=== PATIENT | female | born 1975 | race Caucasian/White ===

== ENCOUNTER 2019-01-27 12:27 | Outpatient (CLI) | payer MEDICARE ==
--- NOTE | 2019-01-27 13:17 | CT ---
CT ABDOMEN AND PELVIS WITH IV CONTRAST CLINICAL INFORMATION: Abdominal pain with nausea and vomiting. COMPARISON: 04/24/2015. Technique: Multiple contiguous axial CT images are obtained through the abdomen and pelvis with IV contrast. Cor onal reformatted images are provided. FINDINGS: Lower Chest: within normal limits. Vessels: Abdominal aorta is normal in caliber without evidence of an aortic dissection. Abdomen: Portal vein:Patent Gallbladder: Surgically absent. Liver: There are a few small subcentimeter hypodense lesions seen within the left hepatic lobe one of which was present on prior exam in 2015.. These lesions are too small to further characterize but statistically likely represent tiny cysts. Spleen: within normal limits. Pancreas: within normal limits. Adrenals: within normal limits. Kidneys: within normal limits. Bowel: Postsurgical changes of the stomach and loops of small bowel are again seen. There is mild foc al dilatation of a loop of small bowel which is fluid-filled in the left mid abdomen, but this probably related to peristalsis. Remaining small bowel loops are normal in caliber. Appendix: Not visualized, but there are no secondary signs to suggest appendicitis. Peritoneum: No ascites or free air; no fluid collection. Mesentery and Retroperitoneum: No enlarged mesenteric or retroperitoneal lymph nodes. Abdominal Wall: There is a supraumbilical ventral abdominal wall hernia which is larger in size jai red to prior exam. Portion of the sigmoid colon extends to the level of the defect. The hernia defect measures 6.7 cm in transverse dimensions. There is no evidence of bowel obstruction. Pelvis: Reproductive Organs: Evidence of hysterectomy. There is a small low-density structure seen associated with the left ovary measuring 1.7 cm likely 2 small cysts/follicle. Pelvis within normal limits. Bladder: within normal limits. Bones: within normal limits. IMPRESSION: 1. No acute findings are seen in the abdomen or pelvis. 2. Subcentimeter too small to characterize hypodense lesions left hepatic lobe statistically likely r epresenting cysts. 3. Postsurgical changes related to cholecystectomy and hysterectomy. 4. Post surgical changes of the stomach and loops of small bowel in the upper abdomen. 5. Supraumbilical abdominal wall hernia with small portion of the anterior wall sigmoid colon extendi ng into the defect. There is no evidence of a bowel obstruction.
== END 2019-01-27 12:28 | disposition home or self-care (01) ==
LOC: CT 12:27
PROVIDERS: ATTEND Surgery
DX: R10.9 Unspecified abdominal pain (principal); R11.2 Nausea with vomiting, unspecified; K76.9 Liver disease, unspecified; K43.9 Ventral hernia without obstruction or gangrene; Z98.84 Bariatric surgery status; Z90.49 Acquired absence of other specified parts of digestive tract; Z90.710 Acquired absence of both cervix and uterus; Z98.890 Other specified postprocedural states
CPT/HCPCS: 74177

== ENCOUNTER 2019-02-10 06:20 | Day surgery (SDC) | payer MEDICARE ==
[2019-02-09 10:57] VITALS: BMI 31.0
[2019-02-10] MEDS ORDERED: Levofloxacin 500 mg/D5W 100 ml Premix Bag ONE ×2 (08:02→09:56)
[2019-02-10 08:03] LABS: Hemoglobin 10.6 g/dL (12.0-16.0); Mean Corpuscular HGB CONC 31.5 g/dL (32.0-36.0); Mean Corpuscular Hemoglobin 26.8 pg (27.0-31.0); Mean Corpuscular Volume 85.2 fL (78.0-98.0); Mean Platelet Volume 7.2 fL (7.4-10.4); Platelet Count 260 thou/uL (130-400); RBC Distribution Width 13.8 % (11.5-14.5); Red Blood Cell (RBC) Count 3.97 mill/uL (4.20-5.40); White Blood Cell (WBC) Count 2.9 thou/uL (4.8-10.8)
[2019-02-10] MEDS ORDERED: Dexamethasone 4 mg/ml Vial ONE (08:09)
[2019-02-10] MEDS ORDERED: Midazolam HCl 2 mg/2 ml Vial ONE (08:09)
[2019-02-10] MEDS ORDERED: Fentanyl 100 MCG/2 ML VIAL ONE ×6 (08:09→13:27)
[2019-02-10 08:22] LABS: Anion Gap 12 mmol/L (10-20); BUN (Urea Nitrogen) 7 mg/dL (7.0-18.7); Calc. Creatinine Clearance 137 mL/min (70-130); Calcium 9.1 mg/dL (7.8-10.44); Carbon Dioxide 28 mmol/L (22-29); Chloride 104 mmol/L (98-107); Estimated GFR-MDRD 83; Glucose 93 mg/dL (70-105); Potassium 3.5 mmol/L (3.5-5.1); Sodium 140 mmol/L (136-145)
[2019-02-10 08:34] LABS: Band 1 % (5-11); Eosinophils 4 % (0-10); Lymphocytes 64 % (21-51); MDiff Complete? YES; Monocytes 3 % (0-10); Neutrophil 28 % (42-75); Platelet Morphology Comment Appears Adequate; Polychromasia SLIGHT = 2-3 cells (100X) (0-2/hpf)
[2019-02-10] MEDS ORDERED: Bupivacaine/Epinephrine 0.25% 30 ML VIAL ONE (08:54)
[2019-02-10] MEDS ORDERED: Clindamycin/D5W 900 mg/50 ml Premix Bag ONE (09:56)
[2019-02-10] MEDS ORDERED: Meperidine HCl/PF 25 MG/ML VIAL ONE (12:17)
[2019-02-10] MEDS ORDERED: Promethazine HCl 25 MG/ML VIAL ONE (12:37)
[2019-02-10] MEDS ORDERED: Bupivacaine HCl 0.5%/Epinephrine 1:200,000/PF 30 ml Vial ONE (15:58)
[2019-02-10] MEDS ORDERED: Rocuronium Bromide 10 MG/ML (10ML VIAL) ONE (16:28)
[2019-02-10] MEDS ORDERED: PROPOFOL 200 MG/20 ML VIAL ONE (16:28)
[2019-02-10] MEDS ORDERED: Ketorolac Tromethamine 30 MG/ML VIAL ONE (16:28)
[2019-02-10] MEDS ORDERED: Ondansetron PF 4 MG/2 ML Vial ONE (16:28)
[2019-02-10] MEDS ORDERED: Dexamethasone 20 MG/5 ML VIAL ONE (16:28)
[2019-02-10] MEDS ORDERED: Lidocaine 1% PF 5 ML VIAL ONE (16:28)
[2019-02-10] MEDS ORDERED: Glycopyrrolate 0.2 MG/ML 5 ML SYRINGE ONE ×2 (16:28)
--- NOTE | 2019-02-13 07:47 | PDOC.OP ---
Operative Note - Operative Note Operative Note: PROCEDURE: Laparoscopic repair of ventral incisional hernia SURGEON: Mariella Marinelli M.D. DATE: 02/10/2019 PREOPERATIVE DIAGNOSIS: Ventral incisional hernia POSTOPERATIVE DIAGNOSIS: Ventral incisional hernia HISTORY: Patient with enlarging ventral incisional hernia which is symptomatic. She has a history of small bowel obstruction so a laparoscopic repair was recommended. PROCEDURE IN DETAIL: After informed consent was obtained and appropriate preoperative antibiotics were administered the patient was taken to the operating room and placed in the supine position. Local anesthesia was infused in the left lateral position and dissection carried down to the external oblique aponeurosis. An incision was made in the direction of the underlying muscle fibers and stay sutures were placed. The internal oblique aponeurosis was also incised in the direction of the fibers and stay sutures placed. The transversalis muscle was split and the peritoneum identified and incised under direct vision. There were no palpable adhesions in the area of the incision. A 12 port was placed through the skin incision and the abdominal cavity carefully examined laparoscopically. There was no evidence of trocar injury and no adhesions in the region of the left lateral trocar. The patient did have omental adhesions and small bowel adhesions to the anterior midline in the area of her ventral hernia. The clear space in the left upper quadrant was identified and the dissecting trocar placed. An additional dissecting trocar was placed in the right lateral abdomen under direct laparoscopic vision. The omental and small bowel adhesions were carefully taken down through the avascular plane carefully avoiding any electrocautery in proximity to the small bowel. Once the entire anterior abdominal wall was cleared of adhesions the small bowel was carefully examined. There was no evidence of injury to the small intestine. There were nonobstructing adhesions between the omentum and the small bowel which were not taken down. The falciform ligament was taken down with LigaSure to allow placement of the mesh against the anterior abdominal wall. The size of the defect was measured and was 9 x 15 cm. A 17 x 22 cm piece of mesh was obtained and Ethibond sutures placed superiorly inferiorly and at each lateral edge. The mesh was briefly submerged in saline, rolled and placed into the abdominal cavity with the nonadherent side oriented towards the bowel. The sutures were drawn out through the abdominal wall at the appropriate locations using a GraNee needle with excellent coverage of the defect. The sutures were secured to the fascia and secure strap deb placed at 1 cm intervals circumferentially to secure the mesh. The left upper quadrant and right lateral trochars removed and hemostasis was verified. The left lower quadrant trocar was used to desufflate the abdomen and then removed. The peritoneum was closed under direct vision with 3-0 Monocryl suture. The transversalis was closed with 0 Vicryl suture on a UR 6 needle and the internal oblique and external oblique aponeurosis closed with the previously placed stay sutures. The skin incisions were closed with 4-0 Monocryl subcuticular sutures and Dermabond dressings were placed. The patient was extubated and taken to recovery in good condition. Estimated loss was minimal. There were no complications. There were no specimens.
== END 2019-02-10 14:42 | disposition home or self-care (01) ==
LOC: SDC 06:20
PROVIDERS: ATTEND Surgery
PROC: 0WUF4JZ Supplement Abdominal Wall with Synthetic Substitute, Percutaneous Endoscopic Approach (ICD-10-PCS; principal; 2019-02-10)
DX: K43.2 Incisional hernia without obstruction or gangrene (principal); D64.9 Anemia, unspecified; F41.9 Anxiety disorder, unspecified; Z87.19 Personal history of other diseases of the digestive system; Z79.899 Other long term (current) drug therapy; Z88.0 Allergy status to penicillin
CPT/HCPCS: 36415; 80048; 85025; J0131; J0670; J1100; J1885; J1956; J2001; J2175; J2250; J2405; J2550; J2704; J3010; J3490

== ENCOUNTER 2023-03-26 13:34 | Outpatient (CLI) | payer OTHER | END 2023-03-26 13:35 | disposition home or self-care (01) | LOC: BICMAMMO 13:34 | PROVIDERS: ATTEND Internal Medicine | DX: R92.8 Other abnormal and inconclusive findings on diagnostic imaging of breast (principal) | CPT/HCPCS: 77065; G0279 ==